=== PATIENT | female | born 1985 | race Asian ===

== ENCOUNTER 2021-11-14 12:55 | Emergency (ER) | payer BC ==
[~2021-11-14] VITALS: Ht 167.6 cm; Wt 90.7 kg
--- NOTE | 2021-11-14 13:00 | NUR ---
MD FIGUEROA AT BEDSIDE ASSESSING PT.
[2021-11-14 13:15] VITALS: BP_SYST 120
[2021-11-14] MEDS ORDERED: KETOROLAC TROMETHAMINE 30 MG VIAL IM ONE (13:15)
--- NOTE | 2021-11-14 13:32 | NUR ---
PLACED IN BED 3
--- NOTE | 2021-11-14 13:57 | NUR ---
PT IS RESTING , NO DISTRESS NOTED. PT IS EDUCATED OF HER PLAN OF CARE AT THIS TIME.
[2021-11-14] MEDS ORDERED: KETAMINE 30 MG/3 ML SYRINGE IV ONE (14:15)
[2021-11-14] MEDS ORDERED: MIDAZOLAM HCL 5 MG/5 ML VIAL IVP ONE (14:15)
--- NOTE | 2021-11-14 14:30 | NUR ---
IV INSERTION TO THE RIGHT AC IN ONE ATTEMPT WITH 20G. MD MAY CONDUCT A CONSCIOUS SEDATION FOR A REDUCTION PROCEDURE ON THE LEFT ANKLE.
[2021-11-14] MEDS ORDERED: KETAMINE HCL 500 MG/10 ML VIAL ONE (15:11)
[2021-11-14] MEDS ORDERED: NS IV ONE (15:15)
[2021-11-14] MEDS ORDERED: KETAMINE IV ONE (15:15)
[2021-11-14] MEDS ORDERED: MIDAZOLAM HCL 5 MG/5 ML VIAL ONE (15:25)
--- NOTE | 2021-11-14 15:25 | NUR ---
START OF MODERATE SEDATION WITH VERSED. IVP, RN DID RESTART NEW IV IN RIGHT HAND. PT TOLERATED WILL, AND STATED SHE FELT DIZZY.
--- NOTE | 2021-11-14 15:29 | NUR ---
MD PALACIOS IV PUSHED KETAMINE FOR MODERATE SEDATION. 2 RT'S AT BEDSIDE.
--- NOTE | 2021-11-14 15:30 | NUR ---
RT START OXYGEN VIA NC, TO MAINTAIN O2 SATURATION AT 100%. MD BEGIN TO REDUCE THE FRACTURE OF THE LEFT ANKLE. THEN EMT AND MD BEGAN TO SPLINT/CAST THE LEFT ANKLE.
--- NOTE | 2021-11-14 15:41 | NUR ---
PT IS BECOMING MORE AWAKE, RT AND RN AT BEDSIDE.
--- NOTE | 2021-11-14 15:48 | NUR ---
PT CONTINUES TO RECOVERY NORMALLY. RA O2 SATURATION 99%
[2021-11-14] MEDS ORDERED: IBUP-1969 PO (16:04)
[2021-11-14] MEDS ORDERED: HYDR-3927 PO (16:04)
--- NOTE | 2021-11-14 18:02 | NUR ---
PT GIVEN INSTRUCTION ON HOW TO CONTACT A ORTHOPEDIC SURGEON ON MONDAY. PT WAS W/C OUT TO HER 'S VEHICLE. PT WAS HAPPY AND THANKFUL.
--- NOTE | 2021-11-14 18:02 | NUR ---
Patient given written and verbal discharge instructions and verbalizes understanding. ER MD discussed with patient the results and treatment provided. Patient in stable condition. ID arm band removed. IV catheter removed intact and dressing applied, no active bleeding. Rx of NORCO AND MOTRIN given. Patient educated on pain management and to follow up with PMD. Pain Scale 0/10. Opportunity for questions provided and answered. Medication side effect fact sheet provided.
[2021-11-14 18:03] VITALS: BP_SYST 130
== END 2021-11-14 18:02 | disposition home or self-care (01) ==
LOC: SED 12:55
DX: S82.52XA Displaced fracture of medial malleolus of left tibia, initial encounter for closed fracture (principal); S82.62XA Displaced fracture of lateral malleolus of left fibula, initial encounter for closed fracture; Z79.899 Other long term (current) drug therapy; W01.0XXA Fall on same level from slipping, tripping and stumbling without subsequent striking against object, initial encounter; Y93.89 Activity, other specified; Y92.89 Other specified places as the place of occurrence of the external cause; Y99.8 Other external cause status
CPT/HCPCS: 27788; 73600; 73610; 81025; 96372; 99152; 99285; J1885; J2250